=== PATIENT | female | born 1995 | race Caucasian/White ===

== ENCOUNTER 2019-02-13 02:26 | Inpatient (IN) | payer OTHER ==
[2019-02-13] MEDS ORDERED: LACTATED RINGERS 1,000 ML IV ONE (03:21)
[2019-02-13] MEDS ORDERED: ceFAZolin 3 GM in SODIUM CHLORIDE 0.9% 100 ML IVPB ONE (03:21)
[2019-02-13] MEDS ORDERED: CITRIC ACID-SODIUM CITRATE 15 ML CUP PO ONE (03:21)
[2019-02-13 03:35] LABS: Basophils # (A) 0.2 k/uL (0-0.2); Basophils % (A) 1 %; Eosinophils # (A) 0.3 k/uL (0-0.7); Eosinophils % (A) 2 %; HCT 34.4 % (34.0-46.0); HGB 10.6 gm/dL (11.4-16.0); Hypochromasia Moderate; Lymphocytes # (A) 1.7 k/uL (1.0-4.8); Lymphocytes % (A) 14 %; MCH 23.6 pg (25.0-35.0); MCHC 30.9 g/dL (31.0-37.0); MCV 76.4 fL (80.0-100.0); Mean Platelet Volume 9.9; Microcytosis Slight; Monocytes # (A) 0.9 k/uL (0-1.0); Monocytes % (A) 7 %; Neutrophils # (A) 8.9 k/uL (1.3-7.7); Neutrophils % (A) 73 %; Platelet Count 255 k/uL (150-450); Poikilocytosis Slight; RDW 14.6 % (11.5-15.5); WBC 12.2 k/uL (3.8-10.6)
[2019-02-13 03:38] VITALS: BMI 49.4
[2019-02-13] MEDS ORDERED: diphenhydrAMINE 50 MG/ML 1 ML VIAL ONE (04:04)
[2019-02-13] MEDS ORDERED: ONDANSETRON 4 MG/2 ML VIAL ONE (04:04)
[2019-02-13] MEDS ORDERED: MORPHINE SULFATE (PF) 0.3 MG/0.3 ML SYR ONE (04:04)
[2019-02-13] MEDS ORDERED: DEXAMETHASONE SOD PHOS (MDV) 100 MG/10 ML VIAL ONE (04:04)
[2019-02-13] MEDS ORDERED: NALBUPHINE 10 MG/ML (1 ML AMP) ONE (04:04)
[2019-02-13] MEDS ORDERED: fentaNYL (PF) 50 MCG/ML 2 ML AMP ONE (04:04)
[2019-02-13] MEDS ORDERED: OXYTOCIN 10 UNIT/ML 1 ML VIAL ONE (04:04)
[2019-02-13] MEDS ORDERED: NALOXONE 0.4 MG/ML 1 ML VIAL IV PRN (04:42)
[2019-02-13] MEDS ORDERED: ZOLPIDEM 5 MG TAB PO PRN (05:02)
[2019-02-13] MEDS ORDERED: METOCLOPRAMIDE 5 MG/ML 2 ML VIAL IVP PRN (05:02)
[2019-02-13] MEDS ORDERED: diphenhydrAMINE 50 MG/ML 1 ML VIAL IVP PRN ×2 (05:02)
[2019-02-13] MEDS ORDERED: diphenhydrAMINE 50 MG CAP PO PRN (05:02)
[2019-02-13] MEDS ORDERED: ONDANSETRON 4 MG/2 ML VIAL IVP PRN (05:02)
[2019-02-13] MEDS ORDERED: diphenhydrAMINE 25 MG CAP PO PRN (05:02)
[2019-02-13] MEDS ORDERED: MEASLES-MUMPS-RUBELLA VACC/PF 12,500 UNIT/0.5 ML VIAL SQ ONE (05:02)
--- NOTE | 2019-02-13 05:06 | P.HPOB ---
History of Present Illness H&P Date: 02/13/19 Chief Complaint: Intrauterine at 36 weeks: Spontaneous rupture gracia gage/patel Holman is 20/40 old at 36 weeks gestation who relates that she started leaking fluid at approximately 8 AM. She notes that anytime she stood up removed red she leaked but she was uncertain what was should not call or come into labor and delivery. She began having sharp painful contractions she believe at approximately midnight she called our office at 1 AM and she was in structed to come to labor and delivery by 3 and we diagnosed spontaneous rupture membranes via amnio sure and as she was radha and making cervical change a section was performed. Her course she relates is unremarkable, however she is a transfer from [place] and has only seen a Dr. Bellamy one time in the office. She relates she only saw her bonderizer in [place] possibly 4 times throughout the . Limited care and I have no labs or other information on her as her record is not on the chart. Risks/benefits/alternatives to with tubal ligation were discussed with the patient prior to proceeding to the operating room. On physical exam this is a morbidly obese female whose HEENT is unremarkable. Heart regular, lungs clear, extremities without pain. Abdomen is soft gravid uterus is noted. Category 1 tracing was noted. She was dilated to 2% meters 90% effaced -2 station. Assessment intrauterine at 36 weeks with spontaneous rupture membranes and prolonged ruptured membranes Plan repeat section with tubal occlusion with Filshie clips Past Medical History Past Medical History: No Reported History Additional Past Medical History / Comment(s): Obstetric history: This is her first and she has had care with me since 13 weeks. A+, abs neg, Rub Imm, RPR NR, HIV NR, Hep B neg. Normal anatomy US and neg quad. normal 1 hr GTT. GBS neg. History of Any Multi-Drug Resistant Organisms: None Reported Past Surgical History: Section Past Anesthesia/Blood Transfusion Reactions: No Reported Reaction Past Psychological History: Anxiety, Depression Additional Psychological History / Comment(s): Patient did score high on her depression scale. Smoking Status: Never smoker Past Alcohol Use History: Rare Past Drug Use History: None Reported - Past Family History Mother Family Medical History: Cancer, Hypertension Medications and Allergies Home Medications Medication Instructions Recorded Confirmed Type Pnv No.95/Ferrous Fum/Folic AC 1 each PO ONCE 1010/19 10/10/19 History [ Multivitamin Tablet] Allergies Allergy/AdvReac Type Severity Reaction Status Date / Time No Known Allergies Allergy Verified 02/13/19 02:56 Exam Osteopathic Statement: *. No significant issues noted on an osteopathic structural exam other than those noted in the History and Physical/Consult. Vital Signs Temp Pulse Resp BP Pulse Ox 02/13/19 03:26 98.5 F 107 H 16 138/84 98 02/13/19 03:08 98.5 F 127 H 16 136/93 98 Intake and Output 02/12/19 02/12/19 02/13/19 14:59 22:59 06:59 Other: Weight 122.47 kg Results Result Diagrams: 02/13/19 03:13 Abnormal Lab Results - Last 24 Hours (Table) 02/13/19 Range/Units 03:13 WBC 12.2 H (3.8-10.6) k/uL Hgb 10.6 L (11.4-16.0) gm/dL MCV 76.4 L (80.0-100.0) fL MCH 23.6 L (25.0-35.0) pg MCHC 30.9 L (31.0-37.0) g/dL Neutrophils # 8.9 H (1.3-7.7) k/uL
--- NOTE | 2019-02-13 05:13 | P.OP ---
Date of Procedure: 02/13/19 Preoperative Diagnosis: Intrauterine at 36 weeks: Spontaneous rupture membranes: Prolonged ruptured membranes Postoperative Diagnosis: Same with adhesions Procedure(s) Performed: Repeat low transverse section with lysis of adhesions and Filshie clips for tubal ligation Anesthesia: spinal Surgeon: Tj Kulkarni Stem Assembler #1: Carmenza Rodriguez Estimated Blood Loss (ml): 600 IV fluids (ml): 700 Urine output (ml): 200 Pathology: other (Placenta) Condition: stable Disposition: floor Operative Findings: Female scores and weight are both pending as she is in special care nursery Description of Procedure: Patient was taken to the operating suite where a spinal anesthetic was found be adequate. She was prepped and draped in normal sterile fashion and placed in dorsal supine position with leftward tilt. Initially a Pfannenstiel skin incision was made and this incision was then carried through to the underlying layer of the fascia was second knife. Fascia was then nicked in midline and this opening was extended laterally with Harden scissors. Superior and inferior aspect of this incision were then grasped tented up and bluntly and sharply dissected off the rectus muscles. Rectus muscles were then divided the midline and blunt dissection the peritoneum was made. Immediately upon entering the peritoneum significant adhesiolysis along the anterior uterine border and into the bladder were noted careful dissection of the peritoneum superiorly and inferiorly with good visualization of both bowel and bladder were then done. Once this was a copy blunt dissection of the adhesions on the anterior uterus and the bladder were then performed move the bladder at least inferior enough to be able to enter the uterus. Incision was then made on the uterus this incision was then fully developed with a hemostat and then extended bluntly. Head was then atraumatically delivered mouth nares bulb suctioned nuchal cord 1 easily reduced an anterior and posterior shoulders delivered without difficulty followed by the remainder the baby. Umbilical cord was then clamped cut usual fashion an nursery personnel was present and assumed care. Placenta was then delivered intact and Pitocin was added to the IV. Uterus was then exteriorized following complete freeing of adhesions. Blood and debris was then suctioned removed from the uterus and then quarters were marked with clamps. It was noted that the anterior oh medial part of the incision dissected downward towards the bladder and this was repaired with 0 Vicryl suture in a running fashion to reapproximate the transverse incision. Once that was completed transverse incision was closed in usual fashion with 0 Vicryl suture in a running locking fashion followed by a second imbricating layer particular over that middle area to completely close off the incision. It is unclear why a T-shaped laceration happened, but aced on the amount of scar tissue this tissue appeared to be very weakened on the uterine wall and second layer was necessary to obtain enough strength that we felt comfortable with the closure. Once this was completed flow continues were identified and Filshie clips were applied 2 cm from uterine cornu. Left and debris was then suctioned posterior cul-de-sac and with excellent hemostasis noted uterus was reinserted into the abdomen and a piece of Interceed was placed over the top due to adhesions and hopefully we can limit the adhesions moving forward. 0 Vicryl suture was then used to reapproximate the peritoneal layer. Fascial layer was then closed with 0 Vicryl suture one layer of 3-0 Vicryl was placed in deep subcuticular tissues reapproximate skin and close the space. Skin was then closed with jose manuel. Sponge, lap, needle counts were all correct 2. Patient was then taken to the recovery room in stable and satisfactory condition.
[2019-02-13] MEDS ORDERED: CELLULOSE,OXIDIZED 1 EACH EACH MISCELLANE ONE (08:15)
[2019-02-13] MEDS: LACTATED RINGERS 1,000 ML IV SCH ×5 (08:39→23:16)
[2019-02-13] MEDS: KETOROLAC 30 MG/ML 1 ML VIAL IVP PRN ×2 (11:26→19:46)
[2019-02-13] MEDS: SENNOSIDES-DOCUSATE SODIUM 1 EACH TAB PO SCH (16:14)
[2019-02-14] MEDS: SERTRALINE 50 MG TAB PO SCH ×2 (00:15→22:35)
[2019-02-14] MEDS: SENNOSIDES-DOCUSATE SODIUM 1 EACH TAB PO SCH ×3 (00:16→22:18)
[2019-02-14] MEDS: ACETAMINOPHEN TAB 325 MG TAB PO PRN ×3 (00:21→17:31)
[2019-02-14] MEDS: LACTATED RINGERS 1,000 ML IV SCH ×2 (03:00→08:58)
[2019-02-14] MEDS: KETOROLAC 30 MG/ML 1 ML VIAL IVP PRN ×2 (04:28→12:09)
[2019-02-14 07:02] LABS: Basophils % (A) 0 %; Eosinophils # (A) 0.1 k/uL (0-0.7); Eosinophils % (A) 1 %; HCT 29.4 % (34.0-46.0); Hypochromasia Marked; Lymphocytes # (A) 1.6 k/uL (1.0-4.8); Lymphocytes % (A) 15 %; MCH 23.8 pg (25.0-35.0); MCHC 30.5 g/dL (31.0-37.0); Mean Platelet Volume 10.7; Monocytes # (A) 0.8 k/uL (0-1.0); Monocytes % (A) 8 %; Neutrophils # (A) 7.9 k/uL (1.3-7.7); Neutrophils % (A) 74 %; Platelet Count 192 k/uL (150-450); RBC 3.76 m/uL (3.80-5.40); WBC 10.7 k/uL (3.8-10.6)
--- NOTE | 2019-02-14 09:38 | P.PN ---
Progress Note - Text Anesthesia 0830. Spoke with patient this morning who is status post section under spinal anesthesia yesterday. She complains of a postural headache with some photophobia and with the components of nausea. It is reported that the administration of the spinal anesthetic was difficult requiring multiple attempts. It is quite likely that the patient is suffering from a post dural puncture headache. The patient is currently being treated with IV fluids supine bedrest and has opted for an epidural blood patch later on this morning or early afternoon.
--- NOTE | 2019-02-14 12:33 | P.PNOBGPC ---
Subjective - Subjective Principal diagnosis: S/P RLTCS POD #1 Interval history: Pt seen and examined. She is laying flat with a bad headache. anesthesia is planning to do a blood patch today. Denies N/V, F/C, CP, SOB or calf pain. Patient reports: Reports appetite normal, Reports voiding normally [place]: doing well Objective - Vital Signs Latest vital signs: Vital Signs Temp Pulse Resp BP Pulse Ox 02/14/19 08:00 98.2 F 97 18 126/74 99 02/14/19 06:41 16 02/14/19 05:00 98 02/14/19 04:35 16 02/14/19 04:00 99 F 115 H 18 121/72 98 02/14/19 01:00 97 02/14/19 00:00 98.2 F 108 H 16 121/64 97 02/13/19 21:00 16 98 02/13/19 20:00 97.7 F 94 16 113/64 98 02/13/19 19:00 16 02/13/19 16:09 15 95 02/13/19 16:00 98.5 F 90 15 120/65 95 02/13/19 15:00 15 02/13/19 13:00 16 95 Intake and Output 02/13/19 02/14/19 02/14/19 22:59 06:59 14:59 Intake Total 1000 Output Total 250 450 Balance -250 -450 1000 Intake: IV 1000 Invasive Line 1 1000 Output: Urine 250 450 Other: # Voids 1 1 - Exam Lungs: bilateral: normal Chest: Normal S1, Normal S2 Extremities: Present: normal Abdomen: Present: normal appearance, soft. Absent: distention, tenderness Incision: Present: normal, dry, intact Uterus: Present: normal, firm - Labs Labs: Abnormal Lab Results - Last 24 Hours (Table) 02/14/19 Range/Units 06:49 WBC 10.7 H (3.8-10.6) k/uL RBC 3.76 L (3.80-5.40) m/uL Hgb 9.0 L D (11.4-16.0) gm/dL Hct 29.4 L (34.0-46.0) % MCV 78.0 L (80.0-100.0) fL MCH 23.8 L (25.0-35.0) pg MCHC 30.5 L (31.0-37.0) g/dL Neutrophils # 7.9 H (1.3-7.7) k/uL Assessment and Plan (1) Status post repeat low transverse section Current Visit: Yes Status: Acute Code(s): Z98.891 - HISTORY OF UTERINE SCAR FROM PREVIOUS SURGERY SNOMED Code(s): 006630248 (2) Spinal headache Current Visit: Yes Status: Acute Code(s): G97.1 - OTHER REACTION TO SPINAL AND LUMBAR PUNCTURE SNOMED Code(s): 004002357 Plan: 1. blood patch per anesthesia 2. IV fluids 3. ambulate when feeling better.
[2019-02-14] MEDS ORDERED: CAFFEINE-SODIUM BENZOATE 1,000 MG in SODIUM CHLORIDE 0.9% 1,000 ML IVPB ONE (15:00)
[2019-02-14] MEDS ORDERED: CAFFEINE-SODIUM BENZOATE 1,000 MG in SODIUM CHLORIDE 0.9% 1,000 ML IVPB PRN (15:00)
[2019-02-14] MEDS: HYDROcodone/APAP 7.5-325MG 1 EACH TAB PO PRN (23:30)
[2019-02-15] MEDS: IBUPROFEN 600 MG TAB PO PRN ×2 (07:40→17:15)
--- NOTE | 2019-02-15 08:04 | P.PNOBGPC ---
Subjective - Subjective Principal diagnosis: Status post repeat low transverse postop day #2 Interval history: Patient seen and examined. She ended up not getting the blood patch yesterday because she was scared of the risk of infection. She did have some IV caffeine which didn't help too much. The [place] is helping with her headache more and she did get some sleep last night. Patient reports: Reports appetite normal, Reports voiding normally, Reports pain well controlled, Reports ambulating normally Objective - Vital Signs Latest vital signs: Vital Signs Temp Pulse Resp BP Pulse Ox 02/15/19 07:43 98.3 F 99 18 141/86 99 02/15/19 00:00 97.9 F 102 H 16 124/72 02/14/19 20:00 97.7 F 103 H 14 145/90 02/14/19 18:00 18 02/14/19 16:00 97.9 F 86 18 111/55 98 02/14/19 12:00 97.5 F L 110 H 18 128/90 99 - Exam Lungs: bilateral: normal Chest: Normal S1, Normal S2 Extremities: Present: normal Abdomen: Present: normal appearance, soft. Absent: distention, tenderness Incision: Present: normal, dry, intact Uterus: Present: normal, firm Assessment and Plan (1) Status post repeat low transverse section Current Visit: Yes Status: Acute Code(s): Z98.891 - HISTORY OF UTERINE SCAR FROM PREVIOUS SURGERY SNOMED Code(s): 552750352 (2) Spinal headache Current Visit: Yes Status: Acute Code(s): G97.1 - OTHER REACTION TO SPINAL AND LUMBAR PUNCTURE SNOMED Code(s): 517594677 Plan: 1. Continue pain control with [place] and Motrin 2. Increase ambulation 3. Continue Zoloft. We had a long discussion about her previous and her depression afterwards. She would like to do whatever she can to not have depression this time. We did start her on Zoloft and I plan to give her phone numbers for counselors in the area.
[2019-02-15] MEDS: HYDROcodone/APAP 7.5-325MG 1 EACH TAB PO PRN ×2 (12:37→22:10)
[2019-02-15] MEDS: SENNOSIDES-DOCUSATE SODIUM 1 EACH TAB PO SCH ×2 (14:16→22:10)
[2019-02-15] MEDS: SERTRALINE 50 MG TAB PO SCH (22:10)
[2019-02-16] MEDS: HYDROcodone/APAP 7.5-325MG 1 EACH TAB PO PRN ×2 (05:46→19:37)
[2019-02-16] MEDS: SENNOSIDES-DOCUSATE SODIUM 1 EACH TAB PO SCH (09:01)
[2019-02-16] MEDS: ACETAMINOPHEN TAB 325 MG TAB PO PRN (09:28)
--- NOTE | 2019-02-16 10:08 | P.PNOBGPC ---
Subjective - Subjective Principal diagnosis: Status post repeat low transverse postop day #3 Interval history: Patient seen and examined. Denies nausea, vomiting, chest pain, shortness of breath or calf pain. She is seen ambulating the [place] without problem. Patient reports: Reports appetite normal, Reports voiding normally, Reports pain well controlled, Reports ambulating normally : doing well Objective - Vital Signs Latest vital signs: Vital Signs Temp Pulse Pulse Resp BP Pulse Ox 02/16/19 08:00 98.3 F 93 18 132/66 96 02/16/19 00:00 98.2 F 99 14 115/69 02/15/19 16:00 98.1 F 67 14 142/82 - Exam Lungs: bilateral: normal Chest: Normal S1, Normal S2 Extremities: Present: normal Abdomen: Present: normal appearance, soft. Absent: distention, tenderness Incision: Present: normal, dry, intact Uterus: Present: normal, firm Assessment and Plan (1) Status post repeat low transverse section Current Visit: Yes Status: Acute Code(s): Z98.891 - HISTORY OF UTERINE SCAR FROM PREVIOUS SURGERY SNOMED Code(s): 385549230 (2) Spinal headache Current Visit: Yes Status: Acute Code(s): G97.1 - OTHER REACTION TO SPINAL AND LUMBAR PUNCTURE SNOMED Code(s): 308311155 Plan: 1. Pain is well-controlled with [place] and Motrin. 2. Increase ambulation 3. Continue current care
[2019-02-16] MEDS: IBUPROFEN 600 MG TAB PO PRN (12:50)
[2019-02-16] MEDS: SERTRALINE 50 MG TAB PO SCH (23:43)
[2019-02-17] MEDS: IBUPROFEN 600 MG TAB PO PRN ×2 (00:43→20:33)
[2019-02-17] MEDS: SENNOSIDES-DOCUSATE SODIUM 1 EACH TAB PO SCH ×3 (04:30→20:29)
--- NOTE | 2019-02-17 08:20 | P.DS ---
Providers Date of admission: 02/13/19 02:54 Expected date of discharge: 02/17/19 Attending physician: Carrie Bellamy Primary care physician: Stated None - Discharge Diagnosis(es) (1) Status post repeat low transverse section Current Visit: Yes Status: Acute (2) Spinal headache Current Visit: Yes Status: Resolved Hospital Course: Pt presented in labor with SROM. She underwent a repeat low transverse . Her pp course was complicated with a spinal headache. This resolved with fluid, rest, and norco. She is feeling much better today. Denies N/V, F/C, CP, SOB, calf pain. I will discharge her home POD #4 in stable condition to follow up with me in 1 week. Plan - Discharge Summary New Discharge Prescriptions: New Ibuprofen [Motrin] 600 mg PO Q6HR PRN #30 tab PRN Reason: Mild Pain Or Fever >= 100.5 HYDROcodone/APAP 7.5-325MG [[place] 7.5-325] 1 each PO Q6H PRN #12 tab PRN Reason: Severe Pain Sertraline [Zoloft] 50 mg PO HS #30 tab No Action Pnv No.95/Ferrous Fum/Folic AC [ Multivitamin Tablet] 1 each PO ONCE Discharge Medication List Pnv No.95/Ferrous Fum/Folic AC [ Multivitamin Tablet] 1 each PO ONCE 02/13/19 [History] HYDROcodone/APAP 7.5-325MG [[place] 7.5-325] 1 each PO Q6H PRN #12 tab 02/17/19 [Rx] Ibuprofen [Motrin] 600 mg PO Q6HR PRN #30 tab 02/17/19 [Rx] Sertraline [Zoloft] 50 mg PO HS #30 tab 02/17/19 [Rx] Follow up Appointment(s)/Referral(s): Carrie Bellamy DO [Doctor of Osteopathic Medicine] - 1 Week Discharge Disposition: HOME SELF-CARE
[2019-02-17] MEDS: HYDROcodone/APAP 7.5-325MG 1 EACH TAB PO PRN ×3 (08:45→23:06)
[2019-02-17 21:51] VITALS: BP 150/84; PULSE 101; RESP 16; TEMP 98.2
[2019-02-17] MEDS: SERTRALINE 50 MG TAB PO SCH (23:06)
== END 2019-02-17 23:59 | disposition home or self-care (01) | DRG 785 ==
LOC: FBPOP 02:26 → 4FBP 02:54
PROVIDERS: ADMIT Obstetrics & Gynecology; ATTEND Obstetrics & Gynecology
PROC: 0UL70CZ Occlusion of Bilateral Fallopian Tubes with Extraluminal Device, Open Approach (ICD-10-PCS; 2019-02-13)
PROC: 3E0134Z Introduction of Serum, Toxoid and Vaccine into Subcutaneous Tissue, Percutaneous Approach (ICD-10-PCS; 2019-02-13)
PROC: 10D00Z1 Extraction of Products of Conception, Low, Open Approach (ICD-10-PCS; principal; 2019-02-13 04:00)
DX: O75.82 Onset (spontaneous) of labor after 37 completed weeks of gestation but before 39 completed weeks gestation, with delivery by (planned) cesarean section (principal); E66.01 Morbid (severe) obesity due to excess calories; O99.214 Obesity complicating childbirth; G97.1 Other reaction to spinal and lumbar puncture; O42.013 Preterm premature rupture of membranes, onset of labor within 24 hours of rupture, third trimester; O99.344 Other mental disorders complicating childbirth; F41.9 Anxiety disorder, unspecified; F32.9 Major depressive disorder, single episode, unspecified; Z3A.36 36 weeks gestation of pregnancy; N73.6 Female pelvic peritoneal adhesions (postinfective); Z37.0 Single live birth; Z23 Encounter for immunization; Z30.2 Encounter for sterilization; Z79.899 Other long term (current) drug therapy; Y84.4 Aspiration of fluid as the cause of abnormal reaction of the patient, or of later complication, without mention of misadventure at the time of the procedure; Y92.230 Patient room in hospital as the place of occurrence of the external cause; Z82.49 Family history of ischemic heart disease and other diseases of the circulatory system; Z80.9 Family history of malignant neoplasm, unspecified
CPT/HCPCS: 59025; 84112; 85025; 86850; 86900; 86901; 88307; 99213

== ENCOUNTER 2022-07-24 22:13 | Emergency (ER) | payer OTHER ==
[2022-07-24 22:27] VITALS: BP 124/73; PULSE 92; RESP 14; TEMP 97.8
[2022-07-24] MEDS ORDERED: KETOROLAC 15 MG/ML 1 ML VIAL IM STA (22:33)
[2022-07-24] MEDS ORDERED: DIPH,PERTUS(ACELL)TETVAC-LF 0.5 ML VIAL IM ONE (22:33)
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
--- NOTE | 2022-07-24 23:23 | XR ---
EXAMINATION TYPE: XR hand complete RT DATE OF EXAM: 07/24/2022 COMPARISON: None HISTORY: Pain TECHNIQUE: Three-view FINDINGS: The fingers are intact. Metacarpals appear intact. I see no fracture nor dislocation. There are no er osions. IMPRESSION: Negative right hand exam.
== END 2022-07-25 00:06 | disposition home or self-care (01) ==
LOC: EC 22:13
DX: S00.81XA Abrasion of other part of head, initial encounter (principal); S63.91XA Sprain of unspecified part of right wrist and hand, initial encounter; F41.9 Anxiety disorder, unspecified; F32.A Depression, unspecified; Z23 Encounter for immunization; W18.30XA Fall on same level, unspecified, initial encounter
CPT/HCPCS: 73130; 90715; 99284; 90471; 96372; J1885

== ENCOUNTER 2024-10-29 09:59 | Emergency (ER) | payer OTHER ==
[2024-10-29 10:35] VITALS: RESP 18
[2024-10-29] MEDS: FLUORESCEIN STRIPS 1 MG STRIP RIGHT EYE ONE (11:00)
[2024-10-29] MEDS: PROPARACAINE 0.5% OPHTH DROPS 15 ML BTL RIGHT EYE STA (11:00)
[2024-10-29] MEDS: MORPHINE SULFATE 4 MG/ML SYRINGE IM STA (11:16)
--- NOTE | 2024-10-29 11:43 | ED ---
Eye Problem HPI - General Chief complaint: Eye Problems Stated complaint: Right eye abrasion Time Seen by Provider: 10/29/24 10:38 Source: patient, RN notes reviewed Mode of arrival: ambulatory Limitations: no limitations - History of Present Illness Initial comments: This is a 29-year-old female who presents to the emergency department for right eye injury. Patient states that her daughter scratched her in the right eye yesterday causing pain and a gritty sensation. She is having difficulty opening her eye. She went to urgent care, however they were concerned with the appearance and advised she come here to rule out a globe rupture. MD chief complaint: eye pain, eye injury - Related Data Home Medications Medication Instructions Recorded Confirmed Pnv No.95/Ferrous Fum/Folic AC 1 each PO ONCE 02/13/19 02/13/19 [ Multivitamin Tablet] Previous Rx's Medication Instructions Recorded HYDROcodone/APAP 7.5-325MG [[place] 1 each PO Q6H PRN #12 tab 02/17/19 7.5-325] Ibuprofen [Motrin] 600 mg PO Q6HR PRN #30 tab 02/17/19 Sertraline [Zoloft] 50 mg PO HS #30 tab 02/17/19 Allergies Allergy/AdvReac Type Severity Reaction Status Date / Time sertraline [From Zoloft] Allergy Rash/Hives Verified 10/29/24 10:35 Review of Systems ROS Statement: Those systems with pertinent positive or pertinent negative responses have been documented in the HPI. ROS Other: All systems not noted in ROS Statement are negative. Past Medical History Past Medical History: No Reported History Additional Past Medical History / Comment(s): Obstetric history: This is her first and she has had care with me since 13 weeks. A+, abs neg, Rub Imm, RPR NR, HIV NR, Hep B neg. Normal anatomy US and neg quad. normal 1 hr GTT. GBS neg. History of Any Multi-Drug Resistant Organisms: None Reported Past Surgical History: Section Past Anesthesia/Blood Transfusion Reactions: No Reported Reaction Past Psychological History: Anxiety, Depression Smoking Status: Never smoker Past Alcohol Use History: Rare Past Drug Use History: None Reported - Past Family History Mother Family Medical History: Cancer, Hypertension General Exam Limitations: no limitations General appearance: alert, in no apparent distress Head exam: Present: atraumatic, normocephalic, normal inspection Eye exam: Present: PERRL, EOMI, other (Large corneal abrasion versus ulceration on the right) Respiratory exam: Present: normal lung sounds bilaterally. Absent: respiratory distress, wheezes, rales, rhonchi, stridor Cardiovascular Exam: Present: regular rate, normal rhythm Neurological exam: Present: alert, oriented X3, CN II-XII intact Psychiatric exam: Present: normal affect, normal mood Course Vital Signs 10/29/24 10/29/24 10:33 13:13 Temperature 98.0 F 98 F Pulse Rate 67 71 Respiratory 18 18 Rate Blood Pressure 133/83 130/80 O2 Sat by Pulse 99 99 Oximetry Medical Decision Making - Medical Decision Making This is a 29-year-old female who presents to the emergency department for right eye pain. Was pt. sent in by a medical professional or institution? @ -No Did you speak to anyone other than the patient for history? @ -No Did you review nursing and triage notes? @ -Yes, and I agree, it is accurate with regards to the patient's symptoms. Were old charts reviewed? @ -No Differential Diagnosis? @ -Differential Eye Pain: Conjuncitivitis (viral, bacterial, allergic), corneal abrasion, foreign body, iritis, uveitis, keratitis, acute angle closure glaucoma, this is not meant to be an all-inclusive list. EKG interpreted by me (3pts min.)? @ -Not obtained X-rays interpreted by me (1pt min.)? @ -Not obtained CT interpreted by me (1pt min.)? @ -CT scan of the orbits obtained. My interpretation identifies no evidence of a globe rupture. U/S interpreted by me (1pt. min.)? @ -Not obtained What testing was considered but not performed? (CT, X-rays, U/S, labs)? Why? @ -None What meds were considered but not given? Why? @ -None Did you discuss the management of the patient with other professionals? @ -No Did you reconcile home meds? @ -No Was smoking cessation discussed for >3mins.? @ -No Was critical care preformed (if so, how long)? @ -No Were there social determinants of health that impacted care today? How? (Homelessness, low income, unemployed, alcoholism, drug addiction, transportation, low edu. Level, literacy, decrease access to med. care, [facility], rehab)? @ -No Was there de-escalation of care discussed even if they declined? (Discuss DNR or withdrawal of care, Hospice)? @ -No What co-morbidities impacted this encounter? (DM, HTN, Smoking, COPD, CAD, Cancer, CVA, Hep., AIDS, mental health diagnosis, sleep apnea, morbid obesity)? @ -None Was patient admitted / discharged? @ -Discharged. Fluorescein staining performed demonstrating a very large corneal abrasion versus ulceration. CT scan of the orbits obtained revealing no acute right orbit injury including no evidence of a globe rupture. However, there was a concern regarding the extent of the abrasion. Case management called over to Dr. Thapa's office and they advised that she could come straight to their office for ophthalmology evaluation. Patient discharged and sent directly to their office for further care. Will leave discretion of antibiotics up to them, which the patient is in agreement with. Case discussed with ED attending Dr. Dunham. Return precautions reviewed in depth, the patient is instructed to return to the emergency department with any new, worsening, or concerning symptoms. Patient verbalized understanding. Undiagnosed new problem with uncertain prognosis? @ -None Drug Therapy requiring intensive monitoring for toxicity (Heparin, Nitro, Insulin, Cardizem)? @ -None Were any procedures done? @ -None Diagnosis/symptom? @ -Right corneal abrasion/ulcer Acute, or Chronic, or Acute on Chronic? @ -Acute Uncomplicated (without systemic symptoms) or Complicated (systemic symptoms)? @ -Uncomplicated Side effects of treatment? @ -None Exacerbation, Progression, or Severe Exacerbation] @ -Not applicable Poses a threat to life or bodily function? @ -Unlikely - Radiology Data Radiology results: report reviewed, image reviewed Disposition Clinical Impression: Right eye injury Disposition: HOME SELF-CARE Additional Instructions: Return to the emergency department with any new, worsening, or concerning symptoms. Report to Dr. Thapa's office as soon as you leave here. They are going to squeeze you in between other patients. The instructions and address will be on the attached form. Is patient prescribed a controlled substance at d/c from ED?: No Referrals: García Thapa MD [STAFF PHYSICIAN] - 10/29/24 2:00 pm (Please bring insurance and ID cards) None,Stated [Primary Care Provider] - 1-2 days Time of Disposition: 12:55
--- NOTE | 2024-10-29 12:30 | CT ---
EXAMINATION TYPE: CT orbits wo con DATE OF EXAM: 10/29/2024 11:34 AM COMPARISON: None. CLINICAL INDICATION: Female, 29 years old with history of Right eye trauma, RIGHT EYE PAIN/TRAUMA TECHNIQUE: Contrast used: mL of , (none if empty) Oral contrast used: (none if empty) Axial images at 2 mm thick sections. Reconstructed images in the coronal and sagittal planes. FINDINGS: Lobes are symmetrical. Soft tissues appear normal. Intraconal and extraconal fat is normal. Extraocul ar muscles are normal. Lacrimal glands appear normal. No suspicious soft tissue injury is identified. No acute fractures are evident. Orbital floors and medial orbital borges are intact. Extraocular muscl es appear normal. Nasal bones are intact. Greater wings of the sphenoid are normal IMPRESSION: 1. NO SUSPICIOUS ACUTE RIGHT ORBIT INJURY IDENTIFIED BY CT X-Ray Ron Rosenbaum, , 10/29/2024 12:27 PM
[2024-10-29] MEDS: HYDROmorphone 1 MG/ML 1 ML SYRINGE IM STA (12:54)
[2024-10-29] MEDS: CIPROFLOXACIN 0.3% OPHTH SOLN 5 ML BTL RIGHT EYE STA (13:12)
[2024-10-29 13:14] VITALS: BP 130/80; PULSE 71; TEMP 98
== END 2024-10-29 13:14 | disposition home or self-care (01) ==
LOC: EC 09:59
DX: S05.91XA Unspecified injury of right eye and orbit, initial encounter (principal); Z88.8 Allergy status to other drugs, medicaments and biological substances; W50.4XXA Accidental scratch by another person, initial encounter
CPT/HCPCS: 70480; 99283; 96372; J2270; J1171